=== PATIENT | male | born 1995 | race Caucasian/White ===

== ENCOUNTER 2018-01-16 08:46 | Day surgery (SDC) | payer OTHER ==
--- NOTE | 2018-01-11 10:19 | HP ---
PREOPERATIVE HISTORY AND PHYSICAL: DATE OF SURGERY/ADMISSION: 01/16/18 DATE OF OFFICE VISIT/ENCOUNTER: 01/10/18 ATTENDING SURGEON: Paige Monsalve MD* (dictated by STEVAN Zendejas). PROCEDURE: Right thumb ulnar collateral ligament repair. CHIEF COMPLAINT: Right thumb pain after fall. HISTORY OF PRESENT ILLNESS: This is a 22-year-old male, he is a sophomore at [employer], and he sustained injury to his right thumb approximately 2 weeks ago when he was on vacation and playing [place]pikeball. He fell on an outstretched right hand and hyperabducted his right thumb. Initially he reports that there was some significant swelling and bruising and he had difficulty moving his thumb. He ended up going to get x-rays at [facility], which showed a displaced fracture at the insertion of the ulnar collateral ligament. He is still having pain in the thumb; however, it is not quite as bad as it had been initially. He has been wearing a thumb spica brace. He denies any associated numbness or tingling. After review of x-rays and evaluation by Dr. Monsalve, he has consented to proceed with surgical intervention at this time in the form of a right thumb ulnar collateral ligament repair. PAST MEDICAL HISTORY: History of bronchitis. PAST SURGICAL HISTORY: None. CURRENT MEDICATIONS: None. ALLERGIES: No known drug allergies. FAMILY MEDICAL HISTORY: Unremarkable. SOCIAL HISTORY: The patient is a student at [employer]. He is a sophomore studying [employer] and [employer]. He denies tobacco use and recreational drug use. He does drink alcohol on occasion. REVIEW OF SYSTEMS: General: Negative for fevers, chills or night sweats. No known anesthesia problems. No unexplained weight loss or gain. HEENT: Negative for headache, lightheadedness, syncopal episodes, visual changes. Integumentary: Negative for abrasions, lesions or open wounds. Cardiothoracic: Negative for hypertension, chest pain, palpitations, edema. Respiratory: Negative for shortness of breath with exertion, chronic cough, wheezing. : Negative for nocturia, urinary frequency, urgency, history of UTIs and kidney problems. Musculoskeletal: Positive for current complaint. Negative for chronic or intermittent back pain or history of fractures. Neurological: Negative for paresthesias, numbness, history of seizure, stroke, poor balance. Negative for anxiety/depression. Endocrine: Negative for diabetes and thyroid issues. Hematologic: Negative for easy bruising, anemia, bleeding disorders, history of DVT. Infectious Disease: Negative for history of MRSA, hepatitis C , HIV. PHYSICAL EXAMINATION GENERAL: Well-developed, well-nourished 22-year-old male in no acute distress. VITAL SIGNS: Height 5 feet 9 -3/4 inches, weight 138 pounds, blood pressure 108 /66. HEENT: Normocephalic, atraumatic. Pupils are equal, round, and reactive to light and accommodation. Extraocular movements are intact. NECK: Supple. No palpable lymph nodes. Throat is clear. PULMONARY: Lungs are clear to auscultation bilaterally. No wheezes, rales, or rhonchi. CARDIOVASCULAR: Regular rate and rhythm. S1, S2. No murmurs, rubs or gallops. No edema. ABDOMEN: Positive bowel sounds, soft, nontender. NEUROLOGIC: Alert and oriented x3. Cranial nerves II through XII are intact. Sensation is intact to light touch. MUSCULOSKELETAL: On exam of his right hand, he has some visible swelling at the MP joint and obvious instability of ulnar collateral ligament compared to the left thumb. He has active motion available, but decreased flexion at the MP joint and pain with motion of the thumb. Neurovascular function is intact. Skin is intact. IMAGING STUDIES: X-rays: AP, lateral and oblique of the right thumb show an avulsion fracture at the insertion of the ulnar collateral ligament of the MP joint. IMPRESSION: Right thumb ulnar collateral ligament injury. PLAN: The patient is scheduled to undergo a right thumb ulnar collateral ligament repair with Dr. Monsalve on 01/16/18. He will return to the office 10 days postop for followup and suture removal. A prescription for Ultracet was e- scribed to the patient's pharmacy for postoperative pain management. STEVAN ZENDEJAS [id number]/[facility] #: [id number] [place]
[~2018-01-16 08:46] MED LIST: Buffered Lidocaine 0.9% SYRIN* 5 ML/SYR SYRINGE INTRADERM ONE; Dexamethasone IV* 4 MG/ML 1 ML (4 MG) IV SLOW PU ONE; Famotidine TAB* 20 MG PO ONE
[2018-01-16] MEDS ORDERED: Famotidine TAB* 20 MG ONE (08:54)
[2018-01-16] MEDS ORDERED: Dexamethasone IV* 4 MG/ML 1 ML (4 MG) ONE (08:54)
[2018-01-16] MEDS ORDERED: ceFAZolin 2 GM PREMIX (*) 2 GM/50 ML BAG IVPB ONE (08:54)
[2018-01-16] MEDS ORDERED: Buffered Lidocaine 0.9% SYRIN* 5 ML/SYR SYRINGE ONE (09:23)
[2018-01-16] MEDS ORDERED: fentaNYL* 50 MCG/ML 2 ML VIAL (100 MCG VIAL) ONE (09:35)
[2018-01-16] MEDS ORDERED: Midazolam* 1 MG/ML 2 ML VIAL (2 MG) ONE (09:40)
[2018-01-16] MEDS ORDERED: Bupivacaine 0.5% SDV PF* 30ML VIAL ONE (10:22)
[2018-01-16] MEDS ORDERED: Naloxone* 0.4 MG/ML 1 ML VIAL IV PRN (11:14)
[2018-01-16] MEDS ORDERED: Ketorolac INJ* 30 MG/ML 1 ML VIAL IV PRN (11:14)
[2018-01-16] MEDS ORDERED: HYDROmorphone INJ* 1 MG/ML CARPUJECT SYRINGE IV PRN (11:14)
[2018-01-16] MEDS ORDERED: Ondansetron ODT TAB* 4 MG PO PRN (11:14)
[2018-01-16] MEDS ORDERED: fentaNYL* 50 MCG/ML 2 ML VIAL (100 MCG VIAL) IV PRN (11:14)
[2018-01-16 11:37] VITALS: BP 117/74
--- NOTE | 2018-01-16 21:19 | OP ---
DATE OF OPERATION: 01/16/18 [facility] DATE OF : [birth year] SURGEON: Paige Monsalve MD WAREHOUSE RECORD CLERK: STEVAN Zendejas ANESTHESIA: IV regional. PRE-OP DIAGNOSIS: Ulnar collateral ligament tear of the right thumb. POST-OP DIAGNOSIS: Ulnar collateral ligament tear of the right thumb. OPERATIVE PROCEDURE: Ulnar collateral ligament repair of the right thumb. ESTIMATED BLOOD LOSS: Zero. TOURNIQUET TIME: 30 minutes. INDICATIONS FOR PROCEDURE: Everette is a 22-year-old male who injured his right thumb and on x-ray, has an avulsion fracture at the insertion of the ulnar collateral ligament of his right thumb. He presents for ulnar collateral ligament repair. DESCRIPTION OF PROCEDURE: The patient was brought to the operating room, was given an IV regional anesthetic with a tourniquet around his right upper arm. The skin of his right upper extremity was prepped and draped in the usual sterile fashion. A longitudinal incision was made on the ulnar aspect of the MP joint. We dissected bluntly through the subcutaneous tissue. Branches of the radial sensory nerve were located and retracted by the surgical services manager, Demetria Chatman, whose assistance was essential for the completion of the case to safely avoid nerve injury. The adductor aponeurosis was then incised longitudinally, and we were able to then visualize the ligament tear with a small bony fragment attached to it. The corresponding area on the proximal phalanx was curetted and then two Mitek suture anchors were placed in the base of the proximal phalanx and then the needle was passed through the distal aspect of the ligament and then tied down to secure the bony fragment back into the proximal phalanx. This gave excellent stability of the ulnar collateral ligament. The wound was copiously irrigated with saline. The adductor aponeurosis was closed in interrupted fashion with 2- 0 Ethibond suture. The skin edges were reapproximated with 4-0 nylon suture. The wound was dressed with Xeroform, 4x4, Webril and a thumb spica splint. The patient tolerated the procedure well and was brought into the recovery room in good condition. [id number]/[facility] #: [id number] [facility]
== END 2018-01-16 12:10 | disposition home or self-care (01) ==
LOC: OREAST 08:46
PROVIDERS: ATTEND Orthopaedic Surgery
DX: S63.641A Sprain of metacarpophalangeal joint of right thumb, initial encounter (principal); W18.39XA Other fall on same level, initial encounter; Y93.79 Activity, other specified sports and athletics; Y92.89 Other specified places as the place of occurrence of the external cause; Y99.8 Other external cause status
CPT/HCPCS: A9270-GY; C1713; J0690; J1100; J2250; J3010